=== PATIENT | male | born 1965 | race African-American/Black ===

== ENCOUNTER 2019-12-03 20:53 | Inpatient (IN) | payer SELFPAY ==
[~2019-12-03] VITALS: Ht 180.3 cm; Wt 68.0 kg
[2019-12-03 21:00] VITALS: BP 147/77
[2019-12-03] MEDS ORDERED: Omnipaque-300 100ml vial INJ PRN (21:00)
--- NOTE | 2019-12-03 21:08 | Emergency Room Report ---
History of Present Illness General Chief Complaint: Abdominal Pain Source: Patient Present Illness HPI Patient is a 54-year-old male presents after increased right inguinal pain. Reports having acute worsening of discomfort to the right inguinal area. Prior history of hernia. Reports having multiple episodes of vomiting. Patient had been brought in by EMS and was given fentanyl 100 mcg as well as Zofran.Patient denies any recent fever. Increased right lower abdominal pain. Allergies: Coded Allergies: No Known Allergies (Unverified , 12/03/19) COVID-19 Screening Contact w/high risk pt: No Recent Travel to affected area: No Experienced COVID-19 symptoms?: No COVID-19 Testing performed RN POST PARTUM: No Patient History Reviewed Nursing Documentation: PMH: Agreed; PSxH: Agreed Nursing Documentation-PMH Past Medical History: No Stated History Review of Systems All Other Systems: negative except mentioned in HPI Physical Exam Vital Signs Date Time Temp Pulse Resp B/P (MAP) Pulse Ox O2 Delivery O2 Flow Rate FiO2 12/03/19 20:55 97.3 65 20 147/77 (100) 100 Room Air Sp02 EP Interpretation: reviewed, normal General Appearance: normal inspection, alert, GCS 15, moderate distress Head: atraumatic ENT: normal ENT inspection, hearing grossly normal, normal voice Neck: normal inspection, full range of motion, supple, no bony tend Respiratory: normal inspection, lungs clear, normal breath sounds, no respiratory distress, no retraction, no wheezing Cardiovascular #1: regular rate, rhythm, no edema Gastrointestinal: normal inspection, normal bowel sounds, non tender, no guarding, hernia - Right inguinal hernia. Genitourinary: no CVA tenderness Musculoskeletal: normal inspection, back normal, normal range of motion Neurologic: alert, responsive, speech normal, normal inspection Psychiatric: normal inspection, judgement/insight normal, mood/affect normal Medical Decision Making Diagnostic Impression: Primary Impression: Incarcerated inguinal hernia ER Course Patient presented for abdominal pain. Differential diagnosis include was not limited to incarcerated hernia, bowel obstruction, ulcer disease, appendicitis, anemia. Patient had been given pain medications prior to arrival. Initial attempt at reduction was unsuccessful. Patient had continued pain to the inguinal area and was given further pain medications and a second attempt was made. Was unable to reduce the hernia. Dr. Sotomayor was contacted for surgical consult. CT imaging was ordered due to possible incarcerated hernia. patient was endorsed to Dr. Weinberg pending CT imaging and likely admission. Labs Test 12/03/19 21:15 White Blood Count 4.6 K/UL (4.8-10.8) Red Blood Count 5.08 M/UL (4.70-6.10) Hemoglobin 14.8 G/DL (14.2-18.0) Hematocrit 46.8 % (42.0-52.0) Mean Corpuscular Volume 92 FL (80-99) Mean Corpuscular Hemoglobin 29.1 PG (27.0-31.0) Mean Corpuscular Hemoglobin Concent 31.6 G/DL (32.0-36.0) Red Cell Distribution Width 12.8 % (11.6-14.8) Platelet Count 129 K/UL (150-450) Mean Platelet Volume 8.1 FL (6.5-10.1) Neutrophils (%) (Auto) 65.4 % (45.0-75.0) Lymphocytes (%) (Auto) 25.9 % (20.0-45.0) Monocytes (%) (Auto) 4.8 % (1.0-10.0) Eosinophils (%) (Auto) 1.8 % (0.0-3.0) Basophils (%) (Auto) 2.1 % (0.0-2.0) EKG Diagnostic Results Rate: normal Rhythm: NSR ST Segments: no acute changes Last Vital Signs Date Time Temp Pulse Resp B/P (MAP) Pulse Ox O2 Delivery O2 Flow Rate FiO2 12/03/19 20:55 97.3 65 20 147/77 (100) 100 Room Air Status: unchanged Disposition: ADMITTED INPATIENT Condition: Stable Scripts No Active Prescriptions or Reported MedRobby Riddle MD December 03, 2019 21:08
--- NOTE | 2019-12-03 21:14 | NUR ---
ED Nurse Note: Pt brought in by ambulance from [facility], 04/20 pain in R groin from inguinal hernia for several weeks, pt actively vomitting, pt placed on hall monitor. Labs drawn and sent to lab. BENNY at bedside
[2019-12-03] MEDS ORDERED: Morphine Sulfate 4mg/ml Inj (IV USE ONLY) IVP ONE (21:15)
[2019-12-03 21:46] LABS: BASOPHILS % (AUTO) 2.1 % (0.0-2.0); EOSINOPHILS % (AUTO) 1.8 % (0.0-3.0); HEMATOCRIT 46.8 % (42.0-52.0); HEMOGLOBIN 14.8 G/DL (14.2-18.0); LYMPHOCYTES % (AUTO) 25.9 % (20.0-45.0); MEAN CORPUSCULAR VOLUME 92 FL (80-99); MONOCYTES % (AUTO) 4.8 % (1.0-10.0); NEUTROPHILS % (AUTO) 65.4 % (45.0-75.0); PLATELET COUNT 129 K/UL (150-450); RED BLOOD COUNT 5.08 M/UL (4.70-6.10); RED CELL DISTRIBUTION WIDTH 12.8 % (11.6-14.8); WHITE BLOOD COUNT 4.6 K/UL (4.8-10.8)
[2019-12-03 22:04] LABS: ANION GAP 15 mmol/L (5-15); BLOOD UREA NITROGEN 13 mg/dL (7-18); CARBON DIOXIDE 24 MMOL/L (21-32); CHLORIDE 104 MMOL/L (98-107); CREATININE 1.3 MG/DL (0.55-1.30); POTASSIUM 3.1 MMOL/L (3.5-5.1); SODIUM 143 MMOL/L (136-145)
[2019-12-03 22:08] LABS: ALANINE AMINOTRANSFERASE 37 U/L (12-78); ALBUMIN 3.5 G/DL (3.4-5.0); ALBUMIN/GLOBULIN RATIO 1.2 (1.0-2.7); ALKALINE PHOSPHATASE 64 U/L (46-116); ASPARTATE AMINO TRANSFERASE 36 U/L (15-37); BILIRUBIN,TOTAL 0.7 MG/DL (0.2-1.0)
[2019-12-03] MEDS ORDERED: HYDROmorphone 1mg/ml Carpuject ONE (22:19)
[2019-12-03 22:44] LABS: APPEARANCE,URINE CLEAR; BILIRUBIN, URINE NEGATIVE (NEGATIVE); COLOR,URINE AMBER; GLUCOSE, URINE (UA) NEGATIVE (NEGATIVE); KETONES,URINE 2+ (NEGATIVE); LEUKOCYTE ESTERASE ,URINE NEGATIVE (NEGATIVE); NITRITE,URINE NEGATIVE (NEGATIVE); PH,URINE 7 (4.5-8.0); PROTEIN,URINE NEGATIVE (NEGATIVE); UROBILINOGEN,URINE 1 MG/DL (0.0-1.0)
--- NOTE | 2019-12-03 22:48 | NUR ---
ED Nurse Note: Pt to CT
[2019-12-03 23:00] VITALS: BP 132/78
--- NOTE | 2019-12-03 23:20 | Diagnostic Imaging Report ---
EXAM: CT Abdomen and Pelvis With Intravenous Contrast CLINICAL HISTORY: PAIN TECHNIQUE: Axial computed tomography images of the abdomen and pelvis with intravenous contrast. CTDI is 4 mGy and DLP is 203 mGy-cm. One or more of the following dose reduction techniques were used: automated exposure control, adjustment of the mA and/or kV according to patient size, use of iterative reconstruction technique. Coronal and sagittal reformatted images were created and reviewed. COMPARISON: No relevant prior studies available. FINDINGS: Lung bases: Unremarkable. No mass. No consolidation. ABDOMEN: Liver: Likely benign small 1 cm hemangioma or cyst in hepatic segment VII, no further follow-up right. Otherwise unremarkable liver. Gallbladder and bile ducts: Unremarkable. No calcified stones. No ductal dilation. Pancreas: Unremarkable. No mass. No ductal dilation. Spleen: Unremarkable. No splenomegaly. Adrenals: Unremarkable. No mass. Kidneys and ureters: Circumaortic left renal vein. No hydronephrosis. Stomach and bowel: Distended fluid-filled stomach, which could be a cause for pain; consider decompression. Large right indirect inguinal hernia containing small bowel loops with possible early obstruction and small bowel loops dilated to 3.3 cm. No findings to suggest perforation or ischemia at present. No mucosal thickening. PELVIS: Appendix: No findings to suggest acute appendicitis. Bladder: Unremarkable. No mass. Reproductive: Unremarkable as visualized. ABDOMEN and PELVIS: Intraperitoneal space: Unremarkable. No free air. No significant fluid collection. Bones/joints: Degenerative mild grade 1 anterolisthesis of L4 on L5. Sclerotic 1.5 cm right iliac bone focus axial series 4 image 60 could represent a bone island, correlate with prior imaging studies if available. If not available, recommend outpatient evaluation to exclude sclerotic neoplasm. No acute fracture. No dislocation. Soft tissues: See above. Vasculature: See above. Lymph nodes: Unremarkable. No enlarged lymph nodes. Other findings: Recommend surgical consultation. IMPRESSION: 1. Large right indirect inguinal hernia containing small bowel loops with possible early obstruction and small bowel loops dilated to 3.3 cm. No findings to suggest perforation or ischemia at present. 2. Distended fluid-filled stomach, which could be a cause for pain; consider decompression. 3. Recommend surgical consultation. 4. Degenerative mild grade 1 anterolisthesis of L4 on L5. 5. Sclerotic 1.5 cm right iliac bone focus axial series 4 image 60 could represent a bone island, correlate with prior imaging studies if available. If not available, recommend outpatient evaluation to exclude sclerotic neoplasm.
--- NOTE | 2019-12-03 23:22 | Diagnostic Imaging Report ---
EXAM: XR Chest, 1 View CLINICAL HISTORY: PREOP TECHNIQUE: Frontal view of the chest. COMPARISON: Same-day CT abdomen and pelvis. FINDINGS: Lungs: Unremarkable. No consolidation. Pleural space: Unremarkable. No pneumothorax. Heart: Unremarkable. No cardiomegaly. Mediastinum: Unremarkable. Bones/joints: Unremarkable. Upper abdomen: Distended stomach better evaluated on comparison same day CT abdomen and pelvis. IMPRESSION: 1. No acute cardiopulmonary disease. 2. If there is continued concern recommend frontal and lateral chest radiographs or CT. 3. Distended stomach better evaluated on comparison same day CT abdomen and pelvis.
[2019-12-04] MEDS ORDERED: Morphine Sulfate 4mg/ml Inj (IV USE ONLY) IVP PRN (00:15)
--- NOTE | 2019-12-04 00:30 | NUR ---
TRANSFER TO FLOOR: Patient transferred to as ordered, per Dr Handy. Report given to SHRUTHI Lanza. Belongings and medications given to . Family and or S/O informed of transfer.
[2019-12-04 00:40] VITALS: BP 146/60
--- NOTE | 2019-12-04 00:55 | NUR ---
NURSE NOTES: Received report form SHRUTHI Sim. Patient arrived from ED via gurney. Patient is awake and alert x4. On room air with no SOB or distress. VSS. Ambulatory. Visible hernia distension in the RLQ. Painful to touch. C/O pain 10/10. Will administer pain meds as ordered. NPO status at this time. Belongings checked with patient. Skin intact. Left AC IV intact and patent. Denies nausea at this time. Orders received from Dr. Garcia. Will continue to follow plan of care.
[2019-12-04] MEDS: Morphine Sulfate 2mg/ml Inj(IV/IM USE ONLY) IVP PRN ×2 (01:16→06:02)
--- NOTE | 2019-12-04 02:22 | NUR ---
NURSE NOTES: Notified Dr. Handy of patient's potassium level of 3.1. Awaiting orders.
[2019-12-04 03:44] VITALS: BP 135/78
--- NOTE | 2019-12-04 06:51 | NUR ---
NURSE NOTES: Spoke with Dr. Handy regarding potassium level. New orders received.
--- NOTE | 2019-12-04 07:34 | NUR ---
HAND-OFF: Report given to SHRUTHI Conley.
[2019-12-04 08:00] VITALS: BP 141/81
--- NOTE | 2019-12-04 08:00 | NUR ---
NURSE NOTES: received patient in bed, in room air, no sign of distress, no complaint of pain or discomfort. NPO status, except meds, ice chips, sign at the door. LAC IV access, saline locked, pervious. Bed locked at lowest position possible, call light within easy reach, siderails up x2, on bed alarm. Will continue to monitor patient and follow up with the plan of care.
--- NOTE | 2019-12-04 10:19 | NUR ---
NURSE NOTES: paged dr Handy, pt wants to go home, dressed to go home, dr Sotomayor cleared pt. await order
--- NOTE | 2019-12-04 10:46 | NUR ---
NURSE NOTES: PT LEFT IN STABLE CONDITION, W ALL BELONGINGS, IV REMOVED, DC INSTRUCTIONS RENDERED TO PT W VERBALIZED UNDERSTANDING, INSTRUCTED TO COME BACK FOR SEVERE PAIN (ABDOMINAL) NAUSEA VOMITING
--- NOTE | 2019-12-04 11:28 | Consultation ---
History of Present Illness General Date patient seen: December 04, 2019 Reason for Hospitalization: Abdominal Pain Present Illness HPI 54-year-old male with known history of right inguinal hernia presented to [facility] for evaluation of inguinal hernia pain. Patient states that for years now he has had a known right inguinal hernia that has been reducible. He states 5 episodes over the past few years in which he is gone to emergency part for evaluation including [facility] as well as [place] [facility] at which time it was reduced and he was discharged. Patient states that he was told prior to have outpatient follow-up but has not yet received any. States that he feels food and other movements flare of the hernia and make him uncomfortable so he comes in for evaluation. States that he eats well passes flatus and bowel movement but has been noticing more discomfort "flare "and came in for evaluation. Currently no nausea vomiting fever chills. Surgery called to evaluate assist with care. Patient seen, [facility] [place], chart reviewed. CT reviewed. Allergies: Coded Allergies: No Known Allergies (Unverified , 12/03/19) COVID-19 Screening Contact w/high risk pt: No Recent Travel to affected area: No Experienced COVID-19 symptoms?: No Medication History No Active Prescriptions or Reported Meds Patient History History Provided By: Patient, Medical Record Healthcare decision maker Resuscitation status Advanced Directive on File Past Medical/Surgical History Past Medical/Surgical History: (1) Right inguinal hernia Review of Systems Review of Symptoms General ROS: no weight loss or fever Psychological ROS: no depression or mood changes, no memory loss Ophthalmic ROS: no visual changes or eye irritation ENT ROS: no nasal congestion, hearing loss, dizziness Allergy and Immunology ROS: no allergic symptoms or urticaria Hematological and Lymphatic ROS: no swollen glands, unusual bleeding or bruising Endocrine ROS: no polyuria, polydipsia, weight changes, temperature intolerance Respiratory ROS: no cough, shortness of breath, or wheezing Cardiovascular ROS: no chest pain or dyspnea on exertion Gastrointestinal ROS: denies abdominal pain, bright red blood in stool. Musculoskeletal ROS: no myalgias or arthralgias Neurological ROS: no TIA or stroke symptoms Dermatological ROS: no new or changing skin lesions, rashes or pruritis Physical Exam Physical Exam General appearance: alert, cooperative, no distress, appears stated age Head: Normocephalic, without obvious abnormality, atraumatic Eyes: conjunctivae/corneas clear. PERRL, EOM's intact. Fundi benign Throat: Lips, mucosa, and tongue normal. Teeth and gums normal Neck: supple, symmetrical, trachea midline, no adenopathy, thyroid: not enlarged, symmetric, no tenderness/mass/nodules, no carotid bruit and no JVD Lungs: clear to auscultation bilaterally Heart: regular rate and rhythm, S1, S2 normal, no murmur, click, rub or gallop Abdomen: soft, non-tender. Bowel sounds normal. No masses, no organomegaly. right hernia reduced Extremities: extremities normal, atraumatic, no cyanosis or edema Pulses: 2+ and symmetric Skin: Skin color, texture, turgor normal. No rashes or lesions Neurologic: Grossly normal Last 24 Hour Vital Signs Date Time Temp Pulse Resp B/P (MAP) Pulse Ox O2 Delivery O2 Flow Rate FiO2 12/04/19 08:00 99.9 68 18 141/81 (101) 98 12/04/19 03:44 98.2 63 20 135/78 (97) 99 12/04/19 00:57 Room Air 12/04/19 00:40 97.9 75 20 146/60 (88) 99 12/04/19 00:30 98.0 88 16 132/78 100 Room Air 12/03/19 23:00 98.0 88 16 132/78 100 Room Air 12/03/19 21:38 97.3 12/03/19 21:00 65 20 Room Air 12/03/19 21:00 97.3 65 20 147/77 100 Room Air 12/03/19 20:55 97.3 65 20 147/77 (100) 100 Room Air Intake and Output 12/03/19 12/04/19 19:00 07:00 Output Total 300 ml Balance -300 ml Output Urine Total 300 ml Laboratory Tests Test 12/03/19 21:15 12/03/19 22:35 White Blood Count 4.6 K/UL (4.8-10.8) L Red Blood Count 5.08 M/UL (4.70-6.10) Hemoglobin 14.8 G/DL (14.2-18.0) Hematocrit 46.8 % (42.0-52.0) Mean Corpuscular Volume 92 FL (80-99) Mean Corpuscular Hemoglobin 29.1 PG (27.0-31.0) Mean Corpuscular Hemoglobin Concent 31.6 G/DL (32.0-36.0) L Red Cell Distribution Width 12.8 % (11.6-14.8) Platelet Count 129 K/UL (150-450) L Mean Platelet Volume 8.1 FL (6.5-10.1) Neutrophils (%) (Auto) 65.4 % (45.0-75.0) Lymphocytes (%) (Auto) 25.9 % (20.0-45.0) Monocytes (%) (Auto) 4.8 % (1.0-10.0) Eosinophils (%) (Auto) 1.8 % (0.0-3.0) Basophils (%) (Auto) 2.1 % (0.0-2.0) H Prothrombin Time 11.2 SEC (9.30-11.50) Prothromb Time International Ratio 1.0 (0.9-1.1) Activated Partial Thromboplast Time 21 SEC (23-33) L Sodium Level 143 MMOL/L (136-145) Potassium Level 3.1 MMOL/L (3.5-5.1) L Chloride Level 104 MMOL/L (98-107) Carbon Dioxide Level 24 MMOL/L (21-32) Anion Gap 15 mmol/L (5-15) Blood Urea Nitrogen 13 mg/dL (7-18) Creatinine 1.3 MG/DL (0.55-1.30) Estimat Glomerular Filtration Rate > 60 mL/min (>60) Glucose Level 121 MG/DL (74-106) H Calcium Level 8.0 MG/DL (8.5-10.1) L Total Bilirubin 0.7 MG/DL (0.2-1.0) Aspartate Amino Transf (AST/SGOT) 36 U/L (15-37) Alanine Aminotransferase (ALT/SGPT) 37 U/L (12-78) Alkaline Phosphatase 64 U/L (46-116) Total Protein 6.3 G/DL (6.4-8.2) L Albumin 3.5 G/DL (3.4-5.0) Globulin 2.8 g/dL Albumin/Globulin Ratio 1.2 (1.0-2.7) Lipase 65 U/L (73-393) L Urine Color Diana Urine Appearance Clear Urine pH 7 (4.5-8.0) Urine Specific [place] 1.010 (1.005-1.035) Urine Protein Negative (NEGATIVE) Urine Glucose (UA) Negative (NEGATIVE) Urine Ketones 2+ (NEGATIVE) H Urine Blood Negative (NEGATIVE) Urine Nitrite Negative (NEGATIVE) Urine Bilirubin Negative (NEGATIVE) Urine Ictotest Negative (NEGATIVE) Urine Urobilinogen 1 MG/DL (0.0-1.0) H Urine Leukocyte Esterase Negative (NEGATIVE) Urine Opiates Screen Positive (NEGATIVE) H Urine Barbiturates Screen Negative (NEGATIVE) Phencyclidine (PCP) Screen Negative (NEGATIVE) Urine Amphetamines Screen Negative (NEGATIVE) Urine Benzodiazepines Screen Negative (NEGATIVE) Urine Cocaine Screen Negative (NEGATIVE) Urine Marijuana (THC) Screen Positive (NEGATIVE) H Height (Feet): 5 Height (Inches): 11.00 Weight (Pounds): 150 Assessment/Plan Problem List: (1) Right inguinal hernia Assessment & Plan: Right inguinal hernia reducible. Patient was seen at the bedside made comfortable in supine position with gentle manipulation immediately the hernia was reducible. Patient felt better. No abdominal tenderness indirect hernia defect can be identified approximately 2 cm in the right inguinal region. I do long discussion with the patient regards to his history and current findings. Patient understands that his hernia is reducible and strongly recommend outpatient elective repair rather than emergency repair. If ever becomes truly incarcerated strangulated will require surgical repair. Labs noted CT reviewed exam fairly benign after reduction. Recommend oral p.o. trial and if improved DC planning. I discussed patient his current situation I explained to him that he really does need to proactively pursue outpatient evaluation for outpatient elective repair. Patient expressed understanding and says that he will follow-up outpatient as he is spoken to his family about it before. ICD Codes: K40.90 - Unilateral inguinal hernia, without obstruction or gangrene , not specified as recurrent SNOMED: [id number] Wiliam Sotomayor December 04, 2019 11:28
--- NOTE | 2019-12-04 18:00 | History and Physical Report ---
DATE OF ADMISSION: 12/03/2019 HISTORY AND PHYSICAL/DISCHARGE SUMMARY HISTORY OF PRESENT ILLNESS: This is a 54-year-old male came to the emergency room for having abdomen pain, nausea, vomiting was found to have inguinal hernia in the emergency room. Surgery consult was obtained. Patient was admitted on medical floor for the surgical evaluation. Patient has seen this morning by and has reduced hernia. Patient is asymptomatic. Going to go home. Follow up as outpatient. PHYSICAL EXAMINATION: HEENT: NAD. CHEST: Bilaterally clear. CARDIOVASCULAR: Regular rhythm. ABDOMEN: Soft. EXTREMITIES: CCE. NEUROLOGICAL: No focal deficit. Patient was discharged before my visit. DISCHARGE SUMMARY: Patient is going to go home. FOLLOW UP: With outpatient PCP. DISCHARGE DIAGNOSIS: Hernia, reducible. DIET: He is on soft diet. ACTIVITY: As tolerated. DISCHARGE MEDICATIONS: None. Hugh Handy M.D. DR: ROSEMARY JOB#: [id number] CC:
--- NOTE | 2019-12-05 15:33 | Discharge Summary ---
Discharge Summary Discharge Summary _ DATE OF ADMISSION: 12/03/2019 DATE OF DISCHARGE: 12/04/2019 DISCHARGED BY: Dr. Handy REASON FOR ADMISSION: 54 years old male with past medical history of inguinal hernia, presented with right inguinal pain. He reported acute discomfort to the right inguinal area. Patient reported multiple episodes of vomiting. Vital signs were stable. Laboratory work-up revealed potassium of 3.1. CT of the abdomen and pelvis revealed large right indirect inguinal hernia, containing small bowel loops with possible early obstruction and small bowel loops dilated to 3.3 cm. No findings to suggest perforation or ischemia at present. In emergency department patient received analgesic and antiemetic. Attempts to manually reduce hernia were unsuccessful. Surgeon consulted. Patient subsequently admitted to medical surgical floor for further management. CONSULTANTS: surgery Dr. Sotomayor [facility] COURSE: Patient admitted to medical surgical floor and started on the IV fluids . Surgeon seen and evaluated patient. Pain management was addressed. Potassium was replaced Surgeon was able with gentle manipulation to reduce the hernia . Patient immediately felt better. Long discussion was held with the patient with regards to his history and current findings . Patient understood that his hernia was reducible . Surgeon strongly recommended outpatient elective repair rather than emergency repair. If hernia ever becomes truly incarcerated or strangulated , patient will require emergency surgical repair. Labs remained stable. Patient started on oral liquid diet trial and was able to tolerate it. Surgeon cleared patient for discharge. Due to rapid and unexpected improvement in patient condition , patient was discharged in 1 day.. FINAL DIAGNOSES: Right inguinal hernia -reduced Hypokalemia DISCHARGE MEDICATIONS: See Medication Reconciliation list. DISCHARGE INSTRUCTIONS: Patient was discharged home. Follow-up with a primary care provider or [facility] clinic to schedule elective surgery as recommended by general surgeon. I have been assigned to dictate discharge summary for this account. I was not involved in the patient's management. Shena Banda NP December 05, 2019 15:33
== END 2019-12-04 10:44 | disposition home or self-care (01) | DRG 395 ==
LOC: EDBD 20:53 → EMR 21:15 → 4E 22:13 → EDBEDREQ 23:28
DX: K40.90 Unilateral inguinal hernia, without obstruction or gangrene, not specified as recurrent (principal); E87.6 Hypokalemia
CPT/HCPCS: 36415; 71045; 74177; 80053; 80307; 81003; 83690; 85025; 85610; 85730; 86850; 86900; 86901; 93005; 96361; 96374; 96375; 99285; J2405; J7030; J8499